=== PATIENT | female | born 1985 | race Caucasian/White ===

== ENCOUNTER 2023-06-02 13:14 | Emergency (ER) | payer OTHER, SELFPAY ==
[2023-06-02 13:22] VITALS: BP 179/94; PULSE 73; RESP 18; TEMP 36.6; O2SAT 100; BMI 28.0
--- NOTE | 2023-06-02 14:24 | ED.GENADULT ---
HPI - General Adult General Chief complaint: Neuro Symptoms/Altered Deficit Stated complaint: Face and hands numb and L side Time Seen by Provider: 06/02/23 13:42 History of Present Illness HPI narrative: This 38-year-old female comes in reporting some tingling sensation in the right side of her face and also in her forearm and right hand. She states that this began this morning about 6 hours prior to arrival. She reports episodes like this happening here and there over the past 6 months or so. She does have episodes of visual changes and has been to an eye doctor. These have been described as ocular migraines. She does not typically have headaches. She does not have any speech change or unilateral weakness. She is otherwise in good health. Related Data Home Medications Medication Instructions Recorded Confirmed No Known Home Medications 06/02/23 06/02/23 Allergies Allergy/AdvReac Type Severity Reaction Status Date / Time No Known Drug Allergies Allergy Verified 06/02/23 13:25 Review of Systems Status of ROS: Reports: 10 or more systems reviewed and unremarkable except as noted in History and below Narrative: Constitutional: No fevers, no weight gain or loss. Eyes: No discharge. No vision changes. HENT: No congestion, no sore throat, no ear pain. Cardiovascular: No chest pain, no palpitations. Respiratory: No shortness of breath, no wheezes, no cough. Gastrointestinal: No abdominal pain, no vomiting, no diarrhea. Genitourinary: No dysuria, no hematuria. Musculoskeletal: Normal range of motion. Skin: No rashes, no pruritis. Neurological: No dizziness, weakness, speech change. Sensory change as described above. Endo/Heme/Allergies: No bruising or bleeding. No polydipsia. Pysch: no suicidality, no anxiety, no insomnia. All other systems reviewed and are negative. Exam Narrative: Exam Narrative: Constitutional: Well-developed, well-nourished, no acute distress. HEENT: Normocephalic, atraumatic. Neck: Normal range of motion. Nontender. Supple. Heart: Intact distal pulses. Lungs: No chest discomfort. No wheezes, rhonchi, or rales. Abdomen: Nontender. Back: Normal range of motion. Extremities: Normal range of motion. No injury. Skin: Intact. No rash. Warm. No erythema or pallor. Neurologic: No weakness. Alert and oriented. No facial asymmetry. Tongue is midline. Sjbdeo-ey-cqae is normal. No pronator drift. Net Making Supervisor strength is equal bilaterally. She is able to raise each leg from the bed. She reports tingling in her right hand and distal forearm in the median nerve distribution. Phalen's test is negative but Tinel sign does elicit tingling sensation into her hand. Psychiatric: No suicidality. No anxiety or depression. No insomnia. Nursing notes and vitals signs are reviewed. Const: Vital Signs, click to edit/add: Vital Signs - 24 hr 06/02/23 13:22 Temperature 97.9 F Pulse Rate [Right Pulse Oximeter] 73 Respiratory Rate 18 Blood Pressure [Ri ght Upper Arm] 179/94 H Pulse Oximetry 100 Oxygen Delivery Me thod Room Air Course Vital Signs Vital signs: Initial Vital Signs Temperature 97.9 F 06/02/23 13:22 Temperature Source Temporal Artery Scan 06/02/23 13:22 Pulse Rate 73 06/02/23 13:22 Respiratory Rate 18 06/02/23 13:22 Blood Pressure 179/94 H 06/02/23 13:22 Blood Pressure Mean 122 H 06/02/23 13:22 Blood Pressure Position Sitting 06/02/23 13:22 Pulse Oximetry 100 06/02/23 13:22 Oxygen Delivery Method Room Air 06/02/23 13:22 Vital Signs Temperature 97.9 F 06/02/23 13:22 Pulse Rate 73 06/02/23 13:22 Respiratory Rate 18 06/02/23 13:22 Blood Pressure 179/94 H 06/02/23 13:22 Pulse Oximetry 100 06/02/23 13:22 Oxygen Delivery Method Room Air 06/02/23 13:22 Temperature 97.9 F 06/02/23 13:22 Pulse Rate 73 06/02/23 13:22 Respiratory Rate 18 06/02/23 13:22 Blood Pressure 179/94 H 06/02/23 13:22 Pulse Oximetry 100 06/02/23 13:22 Oxygen Delivery Method Room Air 06/02/23 13:22 Medical Decision Making MDM Narrative Medical decision making narrative: This patient comes in reporting altered sensation in her face and right forearm and hand as described above. Her neurologic exam is completely normal. Her vital signs are also reassuring. The patient does describe similar episodes in the past which have included visual changes that have been described as an ocular migraine. I did discuss various differential diagnoses regarding these symptoms and indicated reassurance with her neurologic exam. Additionally lab and imaging studies are more helpful to rule out other diagnoses. In a process of shared decision-making she declined any further studies. The patient states that she quit smoking long ago but does use nicotine pockets at times. I advised her to discontinue using this. Discharge Plan Discharge Clinical Impression: Right median nerve neuropathy, Migraine syndrome Patient Disposition: Home, Self-Care Condition: Stable Additional Instructions: Continue current plans. Follow up with MD as needed. Return if recurrent or worsening symptoms happen. Prescriptions: No Action No Known Home Medications Follow Up/Referrals: Vicente Alford MD [Primary Care Provider] - Stand Alone Forms: [employer] Info Instructions
[2023-06-02 14:25] VITALS: BP 153/92
== END 2023-06-02 14:59 | disposition home or self-care (01) ==
PROVIDERS: Emergency Provider Emergency Medicine Emergency Medical Services; PCP Family Medicine
DX: G56.11 Other lesions of median nerve, right upper limb (principal); G43.909 Migraine, unspecified, not intractable, without status migrainosus
CPT/HCPCS: 99283; 99284

== ENCOUNTER 2023-09-08 13:25 | Outpatient (CLI) | payer OTHER, SELFPAY ==
--- OUTSIDE RECORDS SUMMARY | 2023-09-10 12:12 | XMS_ITS | Clinical Summary ---
Author Name Unknown Organization [facility] Address [place], [place] [address] Care Team Providers Care Welfare Project Manager Name Role Phone Pcp, No Primary Care Provider Unavailabl e Allergies No known active allergies Medications Medication Sig Dispensed Refills Start Date End Date Status traMADoL (ULTRAM) 50 mg tabletIndications:Ordonez rgery, elective Take 1 Tablet (50 mg) by mouth 3 times daily if needed for Pain. 15 Tablet 0 06/16/2023 Active hydrOXYzine pamoate (VISTARIL) 25 mg capsuleIndications:S urgery, elective Take 1 Capsule (25 mg) by mouth 3 times daily if needed for Itching or Anxiety. 15 Capsule 0 06/16/2023 Active oxyCODONE (ROXICODONE) 5 mg immediate release tablet Take 1-2 Tablets (5-10 mg) by mouth every 4 hours as needed for pain 10 Tablet 0 06/16/2023 Active Active Problems Problem Noted Date Diagnosed Date Smoking 11/26/2010 Cervical high risk HPV (human papillomavirus) te st positive 11/26/2010 Overview: Positive hpv 2007, normal PAP SMEAR No Pap smear since Today Pap smear 2010- pending Bacterial vaginosis Encounters Date Type Department Care Team Description 06/16/2023 7:58 AM CDT Anesthesia Event [facility] [address] [place] [address] Deny Adhikari MD Mattila, Andrew, CRNA 06/16/2023 7:45 AM CDT - 06/16/2023 9:16 AM CDT Surgery [facility] [address] [place] [address] Carlos Navarrete MD BILATERAL BREAST IMPLANT REMOVAL 06/16/2023 6:09 AM CDT - 06/16/2023 1:50 PM CDT Hospital Encounter [facility] [address] [place] [address] Carlos Navarrete MD Surgery, elective (Primary Dx) Discharge Disposition: Home Self Care 06/16/2023 Travel 06/12/2023 Travel from Last 3 Months Immunizations Name Administration Dates Next Due Human Papilloma Virus Vaccine 08/23/2008, 008,02/03/2008 Td (Age >=7 Years) 08/25/2006 Family History Medical History Relation Name Comments Alcohol/Drug Father Alcohol/Drug Maternal Grandfather Alcohol/Drug Maternal Grandmother Diabetes Maternal Grandmother Alcohol/Drug Mother Relation Name Status Comments Father Maternal Grandfather Maternal Grandmother Mother Social History Tobacco Use Types Packs/Day Years Used Date Smoking Tobacco: Former Cigarettes Smokeless Tobacco: Never Tobacco Cessation:Counseling Given: Not Answered Alcohol Use Standard Drinks/Week Comments Not Currently 0 (1 standard drink = 0.6 oz pur e alcohol) Sex and Gender Information Value Date Recorded Sex Assigned at Not on file Gender Identity Not on file Sexual Orientation Not on file Obstetrics History Para Term AB IAB SAB Ectopic Multiple Livin g Live Births 0 0 0 0 0 0 0 0 0 0 Last Filed Vital Signs Vital Sign Reading Time Taken Comments Blood Pressure 138/84 06/16/2023 12:15 PM CDT Pulse 57 06/16/2023 12:15 PM CDT Temperature 36.4 ??C (97.5 ??F) 06/16/2023 12:15 PM C DT Respiratory Rate 16 06/16/2023 12:15 PM CDT Oxygen Saturation 100% 06/16/2023 12:15 PM CDT Inhaled Oxygen Concentration - - Weight 73.9 kg (163 lb) 06/16/2023 7:03 AM CDT Height 162.6 cm (5' 4) 06/16/2023 7:03 AM CDT Body Mass Index 27.98 06/16/2023 7:03 AM CDT Plan of Treatment Health Maintenance Due Date Last Done Comments COVID-19 vaccine series (#1) 1985 Tdap 01/07/1996 Depression screening for age 12+ 1997 BMI (ht and wt on same day) for age 18+ 2003 Pap test for age 21-65 11/26/2013 1, 11/26/2010, 02/03/2008, Additional history exists Tetanus booster 08/25/2016 08/25/2006 Influenza for age 9-49 04/25/2023 HIV for age 15-65 Completed 09/04/2007 Hepatitis C screening for age 18-79 Completed 09/04/2007 Pneumococcal series for age 6-64 Aged Out No longer eligible based on patient's age to complete this topic Medical Devices Explanted Type Area Associate Financial Advisor Device Identifier Shelf Expiration Date Model / Serial / Lot Explant Explanted:Qty: 2 on 06/16/2023 by Carlos Navarrete MD at [facility] Bilateral: Breast Description:BREAST IMPLANTS Procedures Procedure Name Priority Date/Time Associated Diagnosis Comments SUPRAGLOTTIC-LMA Routine 06/16/2023 8:20 AM CDT REMOVAL BREAST IMPLANT Elective 06/16/2023 7:40 AM CDT COSMETIC/SELFPAY Case Notes LIGHTED RETRACTOR GLUCOSE METER Timed 06/16/2023 7:38 AM CDT URINE Preop 06/16/2023 6:40 AM CDT SCAN-CARDIAC STRIP 06/16/2023 12:00 AM CDT from Last 3 Months Results * Supraglottic (06/16/2023 8:20 AM CDT) Narrative Km Damon CRNA - 06/16/2023 8:20 AM CDT Km Damon CRNA ? 06/16/2023 ??8:20 AM Procedure: Supraglottic Patient location during procedure: OR Supraglottic Airway Properties Mask Ventilation: easy Type: classic Tube Size: 4 Insertion Attempts: 1 Placement Verification: auscultation and CO2 detection Assessment Assessment: atraumatic and dentition unchanged Bite Block: molar Deny Adhikari MD ANESTHESIA PX NOT E ORDERABLES * (ABNORMAL) GLUCOSE METER (06/16/2023 7:38 AM CDT) GLUCOSE METER 106(H) 65 - 100 mg/dL 06/16/2023 7:39 AM CDT [facility] Blood BLOOD SPECIMEN / Unknown 06/16/2023 7:38 AM CDT 06/16/2023 7:39 AM CDT Carlos Navarrete MD CHEMISTRY Performing Organization Address City/[facility]/ZIP Co de Phone Number [facility] [address] [place] [phone], * Urine (06/16/2023 6:40 AM CDT) ,URIN E Negative Negative 06/16/2023 6:51 AM CDT [facility] Urine URINE SPECIMEN / Unknown Non-Blood / Unknown 06/16/2023 6:40 AM CDT 06/16/2023 6:40 AM CDT Carlos Navarrete MD URINE Performing Organization Address [facility] Co de Phone Number [facility] [address] [address], * SCAN-CARDIAC STRIP (06/16/2023 12:00 AM CDT) Narrative 06/16/2023 12:00 AM CDT Ordered by an unspecified provider. Other Clinical Staff OTHER from Last 3 Months Insurance Payer Benefit Plan / Group Subscriber ID Effective Dates Phone Address Type [facility] INDIVIDUAL AND FAMILY PLANS [id number] [address] t [address] [place] [address] COSMETIC PROCEDURES COSMETIC PROCEDURE HB ONLY 06/16/2023-Pres ent [address] ATTN: [place] [address] Advance Directives Latest Code Status on File Code Status Date Activated Date Inactivated Comments Full Code 06/16/2023 6:15 AM 06/16/2023 3:55 PM Question Answer Comments Code Status Discussion: Reviewed Preferences Care Teams Welfare Project Manager Relationship Specialty Start Date End Date Pcp, No . PCP - General 05/27/23
== END 2023-09-08 13:26 | disposition home or self-care (01) ==
LOC: NFLDREF 09-10 12:10
PROVIDERS: PCP Nurse Practitioner Family; Referring Provider Nurse Practitioner Family; Visit Provider Nurse Practitioner Family
DX: R31.9 Hematuria, unspecified (principal); N39.0 Urinary tract infection, site not specified
CPT/HCPCS: 81015; 87086

== ENCOUNTER 2024-01-29 08:11 | Outpatient (CLI) | payer OTHER, SELFPAY ==
--- OUTSIDE RECORDS SUMMARY | 2024-01-29 08:16 | XMS_ITS | Clinical Summary ---
Author Organization [facility] Address [place], [place] [address] Care Team Providers Care Band Saw Operator Name Role Phone Pcp, No Primary Care Provider Unavailabl e Allergies No known active allergies Medications Medication Sig Dispensed Refills Start Date End Date Status traMADoL (ULTRAM) 50 mg tabletIndications:Ordonze rgery, elective Take 1 Tablet (50 mg) by mouth 3 times daily if needed for Pain. 15 Tablet 06/16/2023 Active hydrOXYzine pamoate (VISTARIL) 25 mg capsuleIndications:S urgery, elective Take 1 Capsule (25 mg) by mouth 3 times daily if needed for Itching or Anxiety. 15 Capsule 06/16/2023 Active oxyCODONE (ROXICODONE) 5 mg immediate release tablet Take 1-2 Tablets (5-10 mg) by mouth every 4 hours as needed for pain 10 Tablet 06/16/2023 Active Active Problems Problem Noted Date Diagnosed Date Smoking 11/26/2010 Cervical high risk HPV (human papillomavirus) te st positive 11/26/2010 Overview: Positive hpv 2007, normal PAP SMEAR No Pap smear since Today Pap smear 2010- pending Bacterial vaginosis Immunizations Name Administration Dates Next Due Human [...] Health Maintenance Due Date Last Done Comments Tdap 01/07/1996 Depression screening for age 12+ 1997 BMI (ht and wt on same day) for age 18+ 2003 Pap test for age 21-65 11/26/2013 , 11/26/2010, 02/03/2008, Additional history exists Tetanus booster 08/25/2016 08/25/2006 COVID-19 vaccine series ( season) 2023 Influenza for age 9-49 04/25/2024 HIV for age 15-65 Completed 09/04/2007 Hepatitis C screening for age 18-79 Completed 09/04/2007 Pneumococcal series for age 6-64 Aged Out No longer eligible based on patient's age to complete this topic Medical Devices Explanted Type Area Personnel And Payroll Technician Device Identifier Shelf Expiration Date Model / Serial / Lot Explant Explanted:Qty: 2 on 06/16/2023 by Carlos Navarrete MD at [facility] Bilateral: Breast Description:BREAST IMPLANTS Procedures Procedure Name Priority Date/Time Associated Diagnosis Comments WOOD TILE INSTALLER THIN PREP PAP SCREEN IMAGED Routine 11/26/2010 12:08 PM CDT Routine gynecological examination ANTI HIV 1/2 Routine 09/04/2007 4:00 PM PROJECTOR BOOTH OPERATOR Screening Exam Venereal Disease ANTI HCV Routine 09/04/2007 4:00 PM PROJECTOR BOOTH OPERATOR Screening Exam Venereal Disease from Last 3 Months or Most Recently Relevant to Health Maintenance Results * WOOD TILE INSTALLER THIN PREP PAP SCREEN IMAGED (11/26/2010 12:08 PM CDT) CYTOLOGY CYTOPATHOLOGY REPORT [facility] Status: Final Status ?[id number] CLINICAL INFORMATION Last Date of LMP ? :11/25/10 Last Pap Date ?:02/03/08 Last Pap Result ?:NIL ABN Curtice/Bx Past 5 YRS :None Hormone Usage ?:None Menstrual Status ? :Irregular Periods Curtice/Bx done today ? :No Additional Information :None given HPV Request ?:HPV and PAP. See Separate Report. SPECIMEN SOURCE ?:Cervical/vagina l ThinPrep Vial, screening SPECIMEN ADEQUACY ?:Satisfactory for evaluation Endocervical component ? present. INTERPRETATION/RES ULT Negative for intraepithelial lesion or malignancy (NIL) Cytology 1st Screener ??:lgb Signed by ?:lgb This specimen was screened by the FDA approved ThinPrep Imaging System and manually reviewed. NOTE: ??The Pap test is a screening technique, not a diagnostic procedure. ??It is used ??primarily to screen for squamous cancers and precursor lesions. ??Published studies have shown that it is subject to both false negative and false positive results. ??The pap test should not be used as the sole means to diagnose or exclude pre-malignant and malignant lesions. COLLECTED:11/26/10 ? ACCESSIONED: ??11/27/10 ?? SIGNED: ??12/03/10 [facility] PAP [place] CODE NIL [facility] Cervical/Vaginal (Cervical/Vagina l) 11/26/2010 12:08 PM CDT 11/26/2010 12:07 PM CDT Latosha Padron MD PATHOLOGY /CYTOLOGY [facility] [place]NAL ZIP [address] [address] * ANTI HCV (09/04/2007 4:00 PM PROJECTOR BOOTH OPERATOR) Pathologist [facility] ANTI HCV Non-reacti ve [facility] Blood specimen (specimen) BLOOD SPECIMEN / Unknown 09/04/2007 4:00 PM PROJECTOR BOOTH OPERATOR 09/04/2007 3:52 PM PROJECTOR BOOTH OPERATOR Paula Hernandez MD SEND OUTS [facility] [place]NAL ZIP [address] [place] [id number] * ANTI HIV 1/2 (09/04/2007 4:00 PM PROJECTOR BOOTH OPERATOR) Pathologist [facility] ANTI HIV 1/2 Non-reacti ve [facility] Blood specimen (specimen) BLOOD SPECIMEN / Unknown 09/04/2007 4:00 PM PROJECTOR BOOTH OPERATOR 09/04/2007 3:52 PM PROJECTOR BOOTH OPERATOR Paula Hernandez MD SEND OUTS [facility] INTERNAL ZIP [address] [address] from Last 3 Months or Most Recently Relevant to Health Maintenance Insurance Payer Benefit Plan / Group Subscriber ID Effective Dates Phone Address Type [employer] IN[employer] FAMILY [employer]ANS [id number] [address]22-[address] t [address] [place] [address] COSMETIC PROCEDURES COSMETIC PROCEDURE HB ONLY 06/16/2023-Pres ent [address] ATTN: [place] [address] Advance Directives * Full Code (Latest Code Status on File) Date Activated Date Inactivated Comments 06/16/2023 6:15 AM 06/16/2023 3:55 PM Question Answer Comments Code Status Discussion: Reviewed Preferences Care Teams Band Saw Operator Relationship Specialty Start Date End Date Pcp, No . PCP - General 05/27/23
== END 2024-01-29 08:12 | disposition home or self-care (01) ==
PROVIDERS: PCP Nurse Practitioner Family; Visit Provider Nurse Practitioner Family
DX: Z00.00 Encounter for general adult medical examination without abnormal findings (principal); R39.9 Unspecified symptoms and signs involving the genitourinary system; R00.2 Palpitations; Z13.6 Encounter for screening for cardiovascular disorders; Z13.1 Encounter for screening for diabetes mellitus
CPT/HCPCS: 80061; 81001; 82947; 84443; 87086

== ENCOUNTER 2024-05-14 10:45 | Outpatient (CLI) | payer OTHER, SELFPAY ==
--- OUTSIDE RECORDS SUMMARY | 2024-05-14 10:47 | XMS_ITS | Clinical Summary ---
Author Organization [facility] Address [place], [place] [address] Care Team Providers Care Hi Ranger Operator Name Role Phone Pcp, No Primary [...] HPV (human papillomavirus) te st positive 11/26/2010 Overview (11/26/2010): Positive hpv 2007, normal PAP SMEAR No [...] 08/25/2016 08/25/2006 COVID-19 vaccine series ( season) 2024 Influenza for age 9-49 04/25/2024 HIV for age 15-65 Completed 09/04/2007 Hepatitis C screening for age 18-79 Completed 09/04/2007 Pneumococcal series for age 6-64 Aged Out No longer eligible based on patient's age to complete this topic Medical Devices Explanted Type Area Process Safety Management Engineer Device Identifier Shelf Expiration Date Model / Serial / Lot Explant Explanted:Qty: 2 on 06/16/2023 by Carlos Navarrete MD at [facility] Bilateral: Breast Description:BREAST IMPLANTS Procedures Procedure Name Priority Date/Time Associated Diagnosis Comments DIRECTOR CORPORATE SECURITY THIN PREP PAP SCREEN IMAGED Routine 11/26/2010 12:08 PM CDT Routine gynecological examination ANTI HIV 1/2 Routine 09/04/2007 4:00 PM SLIDE FORMING MACHINE TENDER Screening Exam Venereal Disease ANTI HCV Routine 09/04/2007 4:00 PM SLIDE FORMING MACHINE TENDER Screening Exam Venereal Disease from Last 3 Months or Most Recently Relevant to Health Maintenance Results * DIRECTOR CORPORATE SECURITY THIN PREP PAP SCREEN IMAGED (11/26/2010 12:08 PM CDT) CYTOLOGY CYTOPATHOLOGY REPORT [facility] Status: Final Status ?[id number] CLINICAL INFORMATION Last Date of LMP ? :11/25/10 Last Pap Date ?:02/03/08 Last Pap Result ?:NIL ABN Novi/Bx Past 5 YRS :None Hormone Usage ?:None Menstrual Status ? :Irregular Periods Novi/Bx done today ? :No Additional Information :None [...] COLLECTED:11/26/10 ? ACCESSIONED: ??11/27/10 ?? SIGNED: ??12/03/10 [facility] PAP B[place]DA CODE NIL [facility] Cervical/Vaginal (Cervical/Vagina l) 11/26/2010 12:08 PM CDT 11/26/2010 12:07 PM CDT Latosha Padron MD PATHOLOGY /CYTOLOGY Performing Organization Address City/[facility]/ZIP Co de Phone Number [facility] INTERNAL ZIP [phone] [place] [phone] * ANTI HCV (09/04/2007 4:00 PM SLIDE FORMING MACHINE TENDER) Pathologist [facility] ANTI HCV Non-reacti ve [facility] Blood specimen (specimen) BLOOD SPECIMEN / Unknown 09/04/2007 4:00 PM SLIDE FORMING MACHINE TENDER 09/04/2007 3:52 PM SLIDE FORMING MACHINE TENDER Paula Hernandez MD SEND OUTS Performing Organization Address City/[facility]/ZIP Co de Phone Number [facility] INTERNAL ZIP [address] [place] [id number] * ANTI HIV 1/2 (09/04/2007 4:00 PM SLIDE FORMING MACHINE TENDER) Pathologist [facility] ANTI HIV 1/2 Non-reacti ve [facility] Blood specimen (specimen) BLOOD SPECIMEN / Unknown 09/04/2007 4:00 PM SLIDE FORMING MACHINE TENDER 09/04/2007 3:52 PM SLIDE FORMING MACHINE TENDER Paula Hernandez MD SEND OUTS [facility] INTERNAL ZIP [address] [address] from Last 3 Months or Most Recently Relevant to Health Maintenance Insurance Payer Benefit Plan / Group Subscriber ID Effective Dates Phone Address Type [employer] IN[employer] FAMILY [employer]ANS [id number] [address]22-[address] t [address] [place] [address] COSMETIC PROCEDURES COSMETIC PROCEDURE HB ONLY 06/16/2023-Pres ent [address] ATTN: [place] [address] Advance Directives * Full Code (Latest Code Status on File) Date Activated Date Inactivated Comments 06/16/2023 6:15 AM 06/16/2023 3:55 PM Question Answer Comments Code Status Discussion: Reviewed Preferences Care Teams Hi Ranger Operator Relationship Specialty Start Date End Date Pcp, No . PCP - General 05/27/23
[2024-05-14 16:54] LABS: Chlamydia DNA Amplified* NOT DETECTED (No Detected); GC DNA Amplified* NOT DETECTED (No Detected)
[2024-05-29 08:13] LABS: HPV Source Cervix; HPV, High Risk by TMA Not Detected
== END 2024-05-14 10:46 | disposition home or self-care (01) ==
PROVIDERS: PCP Nurse Practitioner Family; Visit Provider Nurse Practitioner Family
DX: N93.0 Postcoital and contact bleeding (principal)
CPT/HCPCS: 87210; 87491; 87591; 87624; 87625; 88141; 88142